=== PATIENT | male | born 1975 | race Caucasian/White ===

== ENCOUNTER → 2019-02-05 | Outpatient (CLI) | payer OTHER ==
[~2019-02-05] MED LIST: ALB6.7R INH
--- NOTE | 2019-02-05 10:20 | RADIOLOGY IMAGING REPORT ---
FACILITY: [facility] [place] PATIENT NAME: Mitchel Andrade : 1975 MR: [id number] V: [id number] EXAM DATE: ORDERING PHYSICIAN: SUSAN FLOWER TECHNOLOGIST: Location: [facility] Patient: Mitchel Andrade : 1975 Visit/Account:[id number] Date of Sevice: 02/05/2019 Chest with lateral, 2 views. HISTORY: Cough, positive TB. COMPARISON: None. One or two tiny densities consistent with calcified granulomas are present in the left upper lung. Th e heart and mediastinum are unremarkable. No bulky adenopathy. Pulmonary vessels are unremarkable. The lungs are otherwise clear. The pleural surfaces are unremarkable. No pneumothorax. No lung cavit ies. No acute bony abnormalities. IMPRESSION: Probable old granulomatous disease. Otherwise no evidence of acute cardiopulmonary disease. Report Dictated By: Bill Gerber MD at 02/05/2019 9:45 AM Report E-Signed By: Bill Gerber MD at 02/05/2019 10:15 AM WSN:[id number]
== END ==
LOC: RAD 09:17
PROVIDERS: ATTEND Family Medicine
DX: R05 Cough (principal); R76.11 Nonspecific reaction to tuberculin skin test without active tuberculosis
CPT/HCPCS: 71046

== ENCOUNTER 2019-02-06 09:40 | Inpatient (IN) | payer OTHER ==
[~2019-02-06] VITALS: Ht 180.3 cm; Wt 81.6 kg
[2019-02-06] MEDS ORDERED: NS(*) 0.9% 1000 ML BAG 1,000 ML IV ONE ×2 (09:47→14:00)
[2019-02-06] MEDS ORDERED: ONDANSETRON 4 MG/2 ML VIAL IVP ONE (09:50)
--- NOTE | 2019-02-06 10:04 | ER Report ---
History and Physical Time Seen By MD: 09:55 Hx. of Stated Complaint: PATIENT SENT BY HIS PCP FOR EVALUATION AFTER FINDING ELEVATED LFT'S IN BLOOD WORK. HE HAS BEEN HAVING SUBJECTIVE FEVERS AND FATIGUE FOR 5 DAYS HPI/ROS CHIEF COMPLAINT: Jaundice fever HISTORY OF PRESENT ILLNESS: 43-year-old male comes emergency department today with 3-4 days of fever general malaise seen by an outpatient physician as well as urgent care had a negative mono negative influenza negative strep done noticing halitosis and some right-sided lymphadenopathy of the right posterior chain patient states that it was sore and tender to palpation was placed on Augmentin for couple days had a little bit of a rashes taken off of that and switched to Cipro. Patient said he had no dysphonia bilirubin trismus patient denied chest pain but said he had some mild abdominal pain nonspecific nonlocalized he also described decreased appetite and nausea without actual emesis. Patient also noticed today he had icteric sclerae jaundice. Patient has no real significant past medical history otherwise patient denies any additional complaints at this time. REVIEW OF SYSTEMS: Respiratory: No cough, no dyspnea. Cardiovascular: No chest pain, no palpitations. Gastrointestinal: Mild abdominal pain jaundice Musculoskeletal: No back pain. Remainder of the 14 system rev: Yes Allergies: Coded Allergies: Penicillins (Verified Allergy, Unknown, 02/06/19) Reviewed Nurses Notes: Yes Old Medical Records Reviewed: Yes Hx Substance Use Disorder: No Hx Alcohol Use: Yes (OCC.) Constitutional Vital Sign - Last 24 Hours 02/06/19 02/06/19 02/06/19 02/06/19 09:45 09:48 10:00 10:10 Temp 100.8 Pulse 123 107 Resp 24 B/P (MAP) 132/101 132/101 (111) 134/86 (102) Pulse Ox 94 98 O2 Delivery Room Air 02/06/19 02/06/19 02/06/19 02/06/19 10:15 11:10 11:15 11:30 Pulse 111 103 B/P (MAP) 135/91 (106) 119/79 (92) Pulse Ox 93 93 02/06/19 02/06/19 02/06/19 02/06/19 11:45 12:00 12:05 12:30 Pulse 110 109 B/P (MAP) 118/89 (99) 120/76 (91) Pulse Ox 92 95 02/06/19 02/06/19 02/06/19 02/06/19 12:35 13:52 14:00 14:05 Pulse 111 110 B/P (MAP) 120/89 (99) 115/81 (92) Pulse Ox 97 93 02/06/19 02/06/19 02/06/19 02/06/19 14:30 14:35 15:00 15:05 Pulse 112 112 B/P (MAP) 119/78 (92) 114/78 (90) Pulse Ox 94 91 Physical Exam General Appearance: The patient is alert, has no immediate need for airway protection and no current signs of toxicity. [ ] Eyes: Anicteric sclera otherwise unremarkable Respiratory: Chest is non tender, lungs are clear to auscultation. Cardiac: regular rate and rhythm [ ] Gastrointestinal: Abdomen is mildly distended is had a palpable liver margin approximately 2 cm below the costal border. Otherwise unremarkable exam Musculoskeletal: Neck: Neck is supple and non tender. Extremities have full range of motion and are non tender. Skin: Icteric sclera with mild new jaundice [ ] DIFFERENTIAL DIAGNOSIS: After history and physical exam differential diagnosis w as considered for hepatitis liver function this functioning biliary tree abnormality obstructed stone mono influenza pharyngitis strep pharyngitis Medical Decision Making Data Points Result Diagram: 02/06/19 0950 02/06/19 0950 Laboratory Hematology Test 02/06/19 09:45 02/06/19 09:50 Urine Color Mary Urine Clarity Cloudy Urine pH 5.0 pH (4.8-9.5) Urine Specific [place] 1.017 Urine Protein 100 mg/dL (NEGATIVE) Urine Glucose (UA) Negative mg/dL (NEGATIVE) Urine Ketones 20 mg/dL (NEGATIVE) Urine Blood Moderate (NEGATIVE) Urine Nitrite Negative (NEGATIVE) Urine Bilirubin Moderate (NEGATIVE) Urine Urobilinogen 0.2 mg/dL (0.2-1.9) Urine Leukocyte Esterase Negative (NEGATIVE) Urine RBC 4 /HPF (0-2/HPF) Urine WBC 7 /HPF (0-5/HPF) Urine Squamous Epithelial Cells Few /LPF (</=FEW) Urine Calcium Oxalate Crystals Few /HPF (NONE) Urine Amorphous Crystals Few /HPF Urine Bacteria Negative /HPF (NONE-FEW) Urine Mucus Few /HPF (NONE-FEW) Red Blood Count 5.30 M/uL (4.00-5.60) Mean Corpuscular Volume 88.0 fL (80.0-96.0) Mean Corpuscular Hemoglobin 31.0 pg (26.0-33.0) Mean Corpuscular Hemoglobin Concent 35.2 g/dL (32.0-36.0) Red Cell Distribution Width 12.9 % (11.5-14.5) Mean Platelet Volume 8.6 fL (7.2-11.1) Neutrophils (%) (Auto) 88.8 % (39.4-72.5) Lymphocytes (%) (Auto) 3.5 % (17.6-49.6) Monocytes (%) (Auto) 6.1 % (4.1-12.4) Eosinophils (%) (Auto) 0.9 % (0.4-6.7) Basophils (%) (Auto) 0.7 % (0.3-1.4) Nucleated RBC Relative Count (auto) 0.1 /100WBC Neutrophils # (Auto) 9.0 K/uL (2.0-7.4) Lymphocytes # (Auto) 0.4 K/uL (1.3-3.6) Monocytes # (Auto) 0.6 K/uL (0.3-1.0) Eosinophils # (Auto) 0.1 K/uL (0.0-0.5) Basophils # (Auto) 0.1 K/uL (0.0-0.1) Nucleated RBC Absolute Count (auto) 0.01 K/uL Prothrombin Time 15.8 seconds (12.0-14.4) Prothromb Time International Ratio 1.25 Activated Partial Thromboplast Time 33 seconds (23-35) Sodium Level 135 mmol/L (137-145) Potassium Level 3.0 mmol/L (3.5-5.0) Chloride Level 96 mmol/L (98-107) Carbon Dioxide Level 28 mmol/L (22-30) Blood Urea Nitrogen 8 mg/dl (9-21) Creatinine 1.00 mg/dl (0.66-1.25) Glomerular Filtration Rate Calc > 60.0 Random Glucose 140 mg/dl (75-110) Calcium Level 8.8 mg/dl (8.4-10.2) Total Bilirubin 9.1 mg/dl (0.2-1.3) Aspartate Amino Transf (AST/SGOT) 60 U/L (0-35) Alanine Aminotransferase (ALT/SGPT) 170 U/L (0-56) Alkaline Phosphatase 209 U/L (0-126) Total Protein 7.5 g/dl (6.3-8.2) Albumin 3.9 g/dl (3.5-5.0) Lipase 504 U/L (23-300) Serum Alcohol < 10 mg/dl Hepatitis C Antibody Negative (NEGATIVE) Monoscreen Negative (NEGATIVE) Influenza Virus Type A (PCR) Negative (NEGATIVE) Influenza Virus Type B (PCR) Negative (NEGATIVE) Group A Streptococcus (PCR) Negative (NEGATIVE) Chemistry Test 02/06/19 09:45 02/06/19 09:50 Urine Color Mary Urine Clarity Cloudy Urine pH 5.0 pH (4.8-9.5) Urine Specific [place] 1.017 Urine Protein 100 mg/dL (NEGATIVE) Urine Glucose (UA) Negative mg/dL (NEGATIVE) Urine Ketones 20 mg/dL (NEGATIVE) Urine Blood Moderate (NEGATIVE) Urine Nitrite Negative (NEGATIVE) Urine Bilirubin Moderate (NEGATIVE) Urine Urobilinogen 0.2 mg/dL (0.2-1.9) Urine Leukocyte Esterase Negative (NEGATIVE) Urine RBC 4 /HPF (0-2/HPF) Urine WBC 7 /HPF (0-5/HPF) Urine Squamous Epithelial Cells Few /LPF (</=FEW) Urine Calcium Oxalate Crystals Few /HPF (NONE) Urine Amorphous Crystals Few /HPF Urine Bacteria Negative /HPF (NONE-FEW) Urine Mucus Few /HPF (NONE-FEW) White Blood Count 10.2 k/uL (4.5-11.0) Red Blood Count 5.30 M/uL (4.00-5.60) Hemoglobin 16.4 g/dL (14.0-18.0) Hematocrit 46.6 % (42.0-52.0) Mean Corpuscular Volume 88.0 fL (80.0-96.0) Mean Corpuscular Hemoglobin 31.0 pg (26.0-33.0) Mean Corpuscular Hemoglobin Concent 35.2 g/dL (32.0-36.0) Red Cell Distribution Width 12.9 % (11.5-14.5) Platelet Count 193 K/uL (150-450) Mean Platelet Volume 8.6 fL (7.2-11.1) Neutrophils (%) (Auto) 88.8 % (39.4-72.5) Lymphocytes (%) (Auto) 3.5 % (17.6-49.6) Monocytes (%) (Auto) 6.1 % (4.1-12.4) Eosinophils (%) (Auto) 0.9 % (0.4-6.7) Basophils (%) (Auto) 0.7 % (0.3-1.4) Nucleated RBC Relative Count (auto) 0.1 /100WBC Neutrophils # (Auto) 9.0 K/uL (2.0-7.4) Lymphocytes # (Auto) 0.4 K/uL (1.3-3.6) Monocytes # (Auto) 0.6 K/uL (0.3-1.0) Eosinophils # (Auto) 0.1 K/uL (0.0-0.5) Basophils # (Auto) 0.1 K/uL (0.0-0.1) Nucleated RBC Absolute Count (auto) 0.01 K/uL Prothrombin Time 15.8 seconds (12.0-14.4) Prothromb Time International Ratio 1.25 Activated Partial Thromboplast Time 33 seconds (23-35) Glomerular Filtration Rate Calc > 60.0 Calcium Level 8.8 mg/dl (8.4-10.2) Total Bilirubin 9.1 mg/dl (0.2-1.3) Aspartate Amino Transf (AST/SGOT) 60 U/L (0-35) Alanine Aminotransferase (ALT/SGPT) 170 U/L (0-56) Alkaline Phosphatase 209 U/L (0-126) Total Protein 7.5 g/dl (6.3-8.2) Albumin 3.9 g/dl (3.5-5.0) Lipase 504 U/L (23-300) Serum Alcohol < 10 mg/dl Hepatitis C Antibody Negative (NEGATIVE) Monoscreen Negative (NEGATIVE) Influenza Virus Type A (PCR) Negative (NEGATIVE) Influenza Virus Type B (PCR) Negative (NEGATIVE) Group A Streptococcus (PCR) Negative (NEGATIVE) Coagulation Test 02/06/19 09:50 Prothrombin Time 15.8 seconds Prothromb Time International Ratio 1.25 Activated Partial Thromboplast Time 33 seconds Toxicology Test 02/06/19 09:50 Serum Alcohol < 10 mg/dl Urinalysis Test 02/06/19 09:45 Urine Color Mary Urine Clarity Cloudy Urine pH 5.0 pH (4.8-9.5) Urine Specific [place] 1.017 Urine Protein 100 mg/dL (NEGATIVE) Urine Glucose (UA) Negative mg/dL (NEGATIVE) Urine Ketones 20 mg/dL (NEGATIVE) Urine Blood Moderate (NEGATIVE) Urine Nitrite Negative (NEGATIVE) Urine Bilirubin Moderate (NEGATIVE) Urine Urobilinogen 0.2 mg/dL (0.2-1.9) Urine Leukocyte Esterase Negative (NEGATIVE) Urine RBC 4 /HPF (0-2/HPF) Urine WBC 7 /HPF (0-5/HPF) Urine Squamous Epithelial Cells Few /LPF (</=FEW) Urine Calcium Oxalate Crystals Few /HPF (NONE) Urine Amorphous Crystals Few /HPF Urine Bacteria Negative /HPF (NONE-FEW) Urine Mucus Few /HPF (NONE-FEW) ED Course/Re-evaluation ED Course ED course medical decision making 43-year-old male comes in with obvious jaundice we'll with a bili Juan of 9.1 CT scan did show some thickening of the gallbladder wall follow-up ERCP showed no obstruction of the duct surgery up at site consults comfortable with admission here hepatitis panels and additional blood work sent but due to the fact this may be some intrarenal and friction intrahepatic issues he wants to have a hospice psych consult this was notified to the ED patient be admitted diagnosis cholangitis Decision to Disposition Date: February 06, 2019 Decision to Disposition Time: 15:35 Depart Departure Latest Vital Signs Vital Signs Date Time Temp Pulse Resp B/P (MAP) Pulse Ox O2 Delivery O2 Flow Rate FiO2 02/06/19 15:05 112 91 02/06/19 15:00 114/78 (90) 02/06/19 09:45 100.8 24 Room Air Impression: Primary Impression: Cholangitis Condition: Improved Disposition: Admitted from ER Referrals: SUSAN FLOWER DO (PCP) MULUGETA ZAVALA MD February 06, 2019 10:04
[2019-02-06 10:07] LABS: PLATELET COUNT, AUTOMATED 193 K/uL (150-450)
[2019-02-06 10:09] LABS: INR 1.25
[2019-02-06] MEDS ORDERED: IOPAMIDOL 76% 100 ML INFUS BTL 100 ML ONE (10:14)
--- NOTE | 2019-02-06 11:19 | RADIOLOGY IMAGING REPORT ---
FACILITY: [facility] [place] PATIENT NAME: Mitchel Andrade : 1975 MR: [id number] V: [id number] EXAM DATE: ORDERING PHYSICIAN: MULUGETA ZAVALA TECHNOLOGIST: Location: [facility] [place] Patient: Mitchel Andrade : 1975 Visit/Account:[id number] Date of Sevice: 02/06/2019 EXAMINATION: CT neck with IV contrast HISTORY: Neck swelling, difficulty swallowing TECHNIQUE: CT was obtained through the neck following IV contrast administration. Sagittal and co kendy reformatted images were generated. 75 mL of IV Isovue-370 injected. One of the following dose optimization techniques was utilized in the performance of this exam: autom ated exposure control; adjustment of the mA and/or kV according to patient size; or use of iterative reconstruction technique. Specific details can be referenced in the facility's radiology CT exam ope rational policy. COMPARISON: None. FINDINGS: Parotid/submandibular and thyroid glands: Subcentimeter left posterior thyroid nodule, image 58 axial Pharyngeal and retropharyngeal soft tissues: Chronic calcifications within the bilateral tonsillar pi llars, otherwise unremarkable. Oral cavity and insolvency consultant space soft tissues: Normal. Larynx/glottis and airway: Normal. Lymph nodes: Mildly enlarged right level two lymph node measures 2.3 cm craniocaudad. Multiple bilat eral nonenlarged normal appearing jugular chain lymph nodes. Vessels: No significant finding. Visualized orbits / brain: No significant finding. Upper chest: Normal. Bones/sinuses/mastoid air cells: Normal. IMPRESSION: 1. Mildly enlarged right level two, likely reactive/benign, lymph node. 2. Subcentimeter left thyroid nodule is statistically benign. 3. Otherwise unremarkable neck CT. No abscess identified. Report Dictated By: Jordan Rivas MD at 02/06/2019 11:08 AM Report E-Signed By: Jordan Rivas MD at 02/06/2019 11:14 AM WSN:[id number]
--- NOTE | 2019-02-06 11:45 | RADIOLOGY IMAGING REPORT ---
FACILITY: [facility] PATIENT NAME: Mitchel Andrade : 1975 MR: [id number] V: [id number] EXAM DATE: ORDERING PHYSICIAN: MULUGETA ZAVALA TECHNOLOGIST: Location: [facility] [place] Patient: Mitchel Andrade : 1975 Visit/Account:[id number] Date of Sevice: 02/06/2019 CT ABDOMEN PELVIS W/ CON HISTORY: ab pain jaundice TECHNIQUE: Following administration of IV contrast contiguous axial images acquired through the abdom en/pelvis. Coronal and sagittal reformatting also performed.Dose Lowering Technique One of the following dose optimization techniques was utilized in the performance of this exam: Autom ated exposure control; adjustment of the mA and/or kV according to the patient's size; or use of an i terative reconstruction technique. Specific details can be referenced in the facility's radiology C T exam operational policy. CONTRAST: 75 mL Isovue-370 COMPARISON: None. FINDINGS: Visualized lung bases: There is a 3 mm noncalcified nodule posterior lateral aspect right lower lobe best seen on image 56 of series 3. There is a small amount linear stranding in the lower lobes whic h may represent scarring versus atelectasis. Hepatobiliary: There is a small amount of pericholecystic fluid and enhancement of the gallbladder w all. There is no evidence of biliary ductal dilatation. Spleen: Spleen appears borderline enlarged Adrenals: Negative. Pancreas: Negative. Kidneys ureters or bladder: There is a mild right hydronephrosis and mild dilatation of the right ure ter along its proximal two thirds. Within the pelvis the distal right ureter becomes a very dilated to the level of the right UVJ. Obstructing calculus is not seen . The bladder wall is mildly thickened Genitalia: There are prominent vascular structures along the superior aspect of both scrotal sacs po ssibly reflecting varicoceles GI: There is a focal narrowing at the splenic flexure which could simply be related to spasm . Just inferior to the pylorus is a slightly lobular enhancing space-occupying process measuring 1.4 x 1.5 x 2.1 cm which is best appreciated on axial slice 180 of series 3 coronal slice 28 and sagittal s lice 59. This is of uncertain etiology although it does appear to enhance to the same density as the adjacent pancreas. This could represent ectopic pancreatic tissue. Less likely etiology would be a submucosal mass. A three month follow-up CT is recommended. Vessels/spaces/nodes: Negative. Bones/soft tissues: There is a small umbilical hernia containing fat and a small right inguinal jasen ia containing fat Additional findings: None pertinent. IMPRESSION: There is a small amount of pericholecystic fluid and enhancement of the gallbladder wall. This could be related to acute cholecystitis and correlation with gallbladder ultrasound is recommended Borderline splenomegaly There is mild right hydronephrosis and mild dilatation of the right ureter along its proximal two thi rds. Within the pelvis the distal right ureter becomes very dilated to the level of the right UVJ. Obstructing calculus is not seen. Urology consultation recommended Bladder wall is mildly thickened Possible varicoceles Just inferior to the pylorus is a slightly lobular enhancing space-occupying process as described abo ve. This could represent ectopic pancreatic tissue. Less likely etiology would be a submucosal mass . A three month follow-up CT is recommended to assure stability Small umbilical hernia containing fat and small right inguinal hernia containing fat 3 mm noncalcified nodule right lower lobe [employer] FOLLOW-UP GUIDELINES FOR NEWLY DETECTED INCIDENTAL NODULES IN PERSONS 35 YEARS OF AGE OR OLDER. *These recommendations do NOT apply to lung cancer screening, patients with immunosuppression or angelica ents with a known primary malignancy. SOLITARY SOLID NODULE If nodule size is < 6 mm: * Low risk patient ? No routine follow-up. * High ris patient ? Optional CT at 12 months. If nodule size is 6-8 mm: * Low risk patient ? CT at 6-12 months, then consider CT at 18-24 months if no change.* High risk p atient ? CT at 6-12 months, then CT at 18-24 months if no change. If nodule size is > 8 mm: * Low risk patient ? Consider CT at 3, 9 and 24 months (if no change), PET/CT, tissue sampling or a combination thereof. * High risk patient ? Consider CT at 3, 9 and 24 months (if no change), PET/CT, tissue sampling, or a combination thereof. LOW RISK PATIENT: Minimal or absent history of tobacco use and of other known risk factors. HIGH RISK PATIENT: Tobacco use, family history of lung cancer, upper pulmonary lobe location of nodul e, presence of emphysema, pulmonary fibrosis, older age. Sofiya Guaman Charlotte DP, Moni AGUIAR, et al. Guidelines for Management of Incidental Pulmonary Nodules Dete cted on CT Images: From the Fleischner Society 2017. Radiology. [facility] Small amount scarring versus atelectasis in the lower lobes Report Dictated By: Roxy Vann MD at 02/06/2019 10:52 AM Report E-Signed By: Roxy Vann MD at 02/06/2019 11:41 AM WSN:[id number]
--- NOTE | 2019-02-06 11:51 | RADIOLOGY IMAGING REPORT ---
FACILITY: [facility] PATIENT NAME: Mitchel Andrade : 1975 MR: [id number] V: [id number] EXAM DATE: ORDERING PHYSICIAN: MULUGETA ZAVALA TECHNOLOGIST: Location: [facility] Patient: Mitchel Andrade : 1975 Visit/Account:[id number] Date of Sevice: 02/06/2019 GALLBLADDER HISTORY: Elevated liver enzymes, enlarged lymph nodes COMPARISON: CT on pelvis performed today FINDINGS: Gallbladder: Gallbladder wall appears thickened at 3.1 mm. There is a small amount of pericholecysti c fluid present. There is no demonstration of gallbladder stones or sludge. The patient was not akshat luated for potential Orozco sign. Liver: There is mild increased echogenicity throughout liver which can be seen with fatty infiltratio n or other infiltrative process Common duct: upper limits of normal at 5.3 mm diameter. Pancreas: Partially obscured by bowel, visualized aspects unremarkable. Right kidney: Mild right hydronephrosis Upper abdominal aorta and IVC: Patent. Ascites: None visualized. IMPRESSION: Gallbladder wall is thickened with a small amount of pericholecystic fluid which is concerning for ac nome cholecystitis. Common bile duct is upper limits of normal at 5.3 mm Mild increased echogenicity throughout liver which can be seen with fatty infiltration other infiltra tive process Mild right hydronephrosis Report Dictated By: Roxy Vann MD at 02/06/2019 11:42 AM Report E-Signed By: Roxy Vann MD at 02/06/2019 11:45 AM WSN:[id number]
--- NOTE | 2019-02-06 12:02 | RADIOLOGY IMAGING REPORT ---
FACILITY: [facility] - [place] PATIENT NAME: Mitchel Andrade : 1975 MR: [id number] V: [id number] EXAM DATE: [id number] ORDERING PHYSICIAN: MULUGETA ZAVALA TECHNOLOGIST: Location: [facility] Patient: Mitchel Andrade : 1975 Visit/Account:[id number] Date of Sevice: 02/06/2019 Exam type: CHEST PA LAT History: Dizziness, pain when swallowing saliva, diminished appetite Comparison: February 05, 2019. Findings: The lungs are free of acute effusions, infiltrates or edema. The cardiac silhouette is normal in siz e. The trachea is in midline. IMPRESSION: 1. No acute cardiopulmonary process is seen Report Dictated By: Roxy Vann MD at 02/06/2019 11:56 AM Report E-Signed By: Roxy Vann MD at 02/06/2019 11:57 AM WSN:[id number]
[2019-02-06] MEDS ORDERED: GADOBENATE 529MG/1ML 15ML VIAL IVP ONE (12:57)
[2019-02-06] MEDS ORDERED: NS(*) 0.9% 50 ML BAG 50 ML ONE (12:57)
--- NOTE | 2019-02-06 14:38 | RADIOLOGY IMAGING REPORT ---
FACILITY: [facility] - [place] PATIENT NAME: Mitchel Andrade : 1975 MR: [id number] V: [id number] EXAM DATE: ORDERING PHYSICIAN: MULUGETA ZAVALA TECHNOLOGIST: Location: [facility] [place] Patient: Mitchel Andrade : 1975 Visit/Account:[id number] Date of Sevice: 02/06/2019 EXAMINATION: Abdominal MRI/MRCP without and with IV contrast HISTORY: Abdominal pain. Elevated liver enzymes. Technique: Multiplanar, multisequence MR images of the abdomen were obtained without and with IV cont rast, including MRCP sequences. Contrast: 15 mL of IV Multihance. COMPARISON: CT abdomen/pelvis 02/06/2019. Abdominal ultrasound 02/06/2019. FINDINGS: Liver: Normal hepatic size and morphology with normal signal intensity and enhancement of the liver parenchyma. No evidence of any focal liver lesion. Gallbladder and bile ducts: The gallbladder is mildly distended, measuring 2.5 cm in diameter. There is mild diffuse wall thickening and enhancement of the gallbladder wall with mild pericholecystic ed aneesh. No discrete intraluminal gallstones are visualized on MRCP sequences. The bile ducts are normal in caliber without dilatation or evidence of any abnormal filling defect. The common bile duct measur es 3 mm. Spleen: Negative. Pancreas: Normal size and morphology of the pancreas with normal signal intensity and enhancement. N o evidence of a focal pancreatic mass. No pancreatic ductal dilatation. Adrenal glands: Negative. Kidneys: Mild hydronephrosis of the right kidney, similar to the earlier CT. The left kidney is nega tive for hydronephrosis. The kidneys enhance normally with normal size and morphology. Bowel and peritoneum: Visualized segments of the small bowel and colon are normal in caliber. No bow el obstruction. Again noted is a small lobular soft tissue mass abutting the inferior wall of the dis bertrand gastric antrum and pylorus. The mass is better defined on the earlier CT, measuring approximately 2.1 x 1.5 x 1.4 cm. This mass demonstrates similar signal intensity and enhancement as the pancreas on all sequences, and appearance again may be compatible with a small amount of ectopic pancreatic ti ssue. Other etiologies not excluded including possible GIST. No abdominal ascites. Lymph node assessment: Negative. Vessels: The abdominal aorta and IVC are patent and normal in caliber. The hepatic veins, portal vei ns, and portal tributaries are patent. Musculoskeletal: Negative. Body wall: Negative. Lung bases: Negative. IMPRESSION: 1. There is mild wall thickening and enhancement of the gallbladder, without any discrete gallstones visualized. While this could be due to cholecystitis, the appearance is nonspecific and other etiolog ies could include systemic illness or cardiac or liver disease. 2. Unremarkable bile ducts. No dilatation or evidence of any discrete intraductal filling defect. 3. Normal MR appearance of the liver. 4. Again noted is a 2.1 cm soft tissue mass abutting the distal gastric antrum and pylorus. 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 Other soft tissue masses are not excluded in cluding possible GIST. If clinically indicated this could be further evaluated with EUS with possible sampling. Alternatively, 3-6 month follow-up could be performed to document stability. CT would like ly be the best modality for imaging follow-up. 5. Stable mild right hydronephrosis, of uncertain etiology. Report Dictated By: Ricardo Miguel MD at 02/06/2019 2:08 PM Report E-Signed By: Ricardo Miguel MD at 02/06/2019 2:33 PM WSN:[id number]
[2019-02-06] MEDS ORDERED: IBUPROFEN 200 MG TAB PO ONE (15:40)
[2019-02-06 16:20] VITALS: BP 125/86
[2019-02-06] MEDS ORDERED: ALB6.7R INH (16:46)
--- NOTE | 2019-02-06 17:44 | Hospitalist Consultation ---
History of Present Illness Requesting Physician Dr. Adam Reason for Consult Possible hepatitis Chief Complaint Jaundice, fever History of Present Illness 43yo male with very little PMHx. He reports onset of nausea, poor appetite, loose stools, fever, jaundice, and abdominal bloating over the past week. He states he has not experienced much in the way of abdominal pain. He did notice some enlarged lymph nodes in his submandibular area. He also noted sore throat and "heartburn". He was seen in urgent care and his PCP's office during the past 4-5 days. He was placed on a course of Augmentin, but was then switched to Cipro. He also had a short pulse of prednisone. He did also take ibuprofen and acetaminophen at near maximal doses for a couple of days. He is not currently taking any medications. He does take occasional "tinctures" from the Optifreeze and did use CBD oil for "stress" a few months ago. He does not recall any exposure to concerning food or fluids. He and his generally eat the same things and she has not been ill. They do not eat out much. He has not travelled out of the [facility] in past few months, but did go to [place] and [place] about 9 months ago. Apparently, since returning from this travel he had significant bad breath, but no other complaints. He has not had any blood transfusions. He is in a monogamous relationship. He does drink alcohol occasionally, but denies daily drinking or binging. His evaluation thus far has included CT scan on abdomen/pelvis, GB ultrasound, MRCP. He also had viral hepatitis studies drawn. History Problems: (1) Fracture of right radius Status: Resolved (2) History of left knee surgery Status: Resolved Home Meds Reported Medications Albuterol Sulfate (PROVENTIL HFA) 6.7 Gm Inh, 2 PUFF INH Q4-6H PRN for WHEEZING, INH 02/06/19 Allergies: Coded Allergies: Penicillins (Verified Allergy, Unknown, 02/06/19) Patient History: Bursitis FATHER FH: Alzheimer's disease Paternal Grandmother FH: alcoholism FATHER Paternal Grandfather FH: back pain Maternal Grandmother FH: cancer Maternal Grandfather FH: heart disease FATHER FH: pneumonia Maternal Grandmother FHx: suicide Paternal Grandfather Fibromyalgia BROTHER OR SISTER High cholesterol FATHER Hx Smoking: No Caffeine Intake: Coffee, Tea Caffeine/Cups Per Day: 2-3/day Hx Alcohol Use: Yes Alcohol Used: Beer, Wine Hx Substance Use Disorder: Yes Social Drug Use: Currently Social Drugs: Marijuana Amount Of Social Drug/s Used: 3-4 times/year Review of Systems Constitutional: Fever, Chills Neurological: Weakness; No Syncope Eyes: No Vision Change, No Loss of Vision Cardiovascular: No Chest Pain, No Palpitations Respiratory: No Shortness of Breath, No Cough Gastrointestinal: Nausea, Vomiting, Diarrhea; No Dysphagia, No Hematemesis, No Hematochezia, No Melena Genitourinary: No Dysuria, No Hematuria Exam Vital Signs Vital Signs Date Time Temp Pulse Resp B/P (MAP) Pulse Ox O2 Delivery O2 Flow Rate FiO2 02/06/19 17:41 92 Room Air 02/06/19 16:30 101.0 02/06/19 16:20 115 16 125/86 (99) General Appearance: Alert, Awake, Other (mild jaundice) Neuro: No Gross deficits Eyes: PERRLA, Other (sclera are mildly icteric) ENT: Oropharynx Clear Neck: No Masses Cardiovascular: Regular Rate and Rhythm (no murmurs noted), No Edema, No JVD Respiratory: Clear to Auscultation Chest: No Tenderness GI: Other (soft/liver edge palpable a few centimeters below right costal nitza in/somewhat tender over RUQ/no guarding or rebound/BS present) : No CVA Tenderness Extremities: Warm, Perfused Integumentary: Skin Intact without Lesion / Mass Psych: Alert & Oriented X3 Medical Decision Making Data Points Result Diagram: 02/06/19 0950 02/06/19 0950 Item Value Date Time Lipase 504 U/L H 02/06/19 0950 Albumin 3.9 g/dl 02/06/19 0950 Total Protein 7.5 g/dl 02/06/19 0950 Alkaline Phosphatase 209 U/L H 02/06/19 0950 Alanine Aminotransferase (ALT/SGPT) 170 U/L H 02/06/19 0950 Aspartate Amino Transf (AST/SGOT) 60 U/L H 02/06/19 0950 Total Bilirubin 9.1 mg/dl H 02/06/19 0950 Calcium Level 8.8 mg/dl 02/06/19 0950 Urine Mucus Few /HPF 02/06/19 0945 Urine Bacteria Negative /HPF 02/06/19 0945 Urine Amorphous Crystals Few /HPF 02/06/19 0945 Urine Calcium Oxalate Crystals Few /HPF H 02/06/19 0945 Urine Squamous Epithelial Cells Few /LPF 02/06/1945 Urine WBC 7 /HPF 02/06/1945 Urine RBC 4 /HPF 02/06/19 0945 Urine Leukocyte Esterase Negative 02/06/1945 Urine Bilirubin Moderate 02/06/1945 Urine Urobilinogen 0.2 mg/dL 02/06/1945 Urine Nitrite Negative 02/06/19 0945 Urine Blood Moderate 02/06/1945 Urine Ketones 20 mg/dL H 02/06/19 0945 Urine Glucose (UA) Negative mg/dL 02/06/1945 Urine Protein 100 mg/dL 02/06/1945 Urine Specific [place] 1.017 02/06/19 0945 Urine pH 5.0 pH 02/06/19 0945 Urine Clarity Cloudy 02/06/19 0945 Urine Color Mary 02/06/19 0945 Hepatitis C Antibody Negative 02/06/19 0950 Group A Streptococcus (PCR) Negative 02/06/19 0950 Influenza Virus Type B (PCR) Negative 02/06/19 0950 Influenza Virus Type A (PCR) Negative 02/06/19 0950 Monoscreen Negative 02/06/19 0950 Serum Alcohol < 10 mg/dl 02/06/19 0950 Activated Partial Thromboplast Time 33 seconds 02/06/19 0950 Prothromb Time International Ratio 1.25 02/06/19 0950 Prothrombin Time 15.8 seconds H 02/06/19 0950 EKG / Imaging Imaging PATIENT NAME: Mitchel Andrade : 1975 MR: [id number] V: [id number] EXAM DATE: ORDERING PHYSICIAN: MULUGETA ZAVALA TECHNOLOGIST: Location: [facility] Patient: Mitchel Andrade : 1975 Visit/Account:[id number] Date of Sevice: 02/06/2019 EXAMINATION: Abdominal MRI/MRCP without and with IV contrast HISTORY: Abdominal pain. Elevated liver enzymes. Technique: Multiplanar, multisequence MR images of the abdomen were obtained without and with IV contrast, including MRCP sequences. Contrast: 15 mL of IV Multihance. COMPARISON: CT abdomen/pelvis 02/06/2019. Abdominal ultrasound 02/06/2019. FINDINGS: Liver: Normal hepatic size and morphology with normal signal intensity and enhancement of the liver parenchyma. No evidence of any focal liver lesion. Gallbladder and bile ducts: The gallbladder is mildly distended, measuring 2.5 cm in diameter. There is mild diffuse wall thickening and enhancement of the gallbladder wall with mild pericholecystic edema. No discrete intraluminal gallstones are visualized on MRCP sequences. The bile ducts are normal in caliber without dilatation or evidence of any abnormal filling defect. The common bile duct measures 3 mm. Spleen: Negative. Pancreas: Normal size and morphology of the pancreas with normal signal inte nsity and enhancement. No evidence of a focal pancreatic mass. No pancreatic ductal dilatation. Adrenal glands: Negative. Kidneys: Mild hydronephrosis of the right kidney, similar to the earlier CT. The left kidney is negative for hydronephrosis. The kidneys enhance normally with normal size and morphology. Bowel and peritoneum: Visualized segments of the small bowel and colon are normal in caliber. No bowel obstruction. Again noted is a small lobular soft tissue mass abutting the inferior wall of the distal gastric antrum and pylorus. The mass is better defined on the earlier CT, measuring approximately 2.1 x 1.5 x 1.4 cm. This mass demonstrates similar signal intensity and enhancement as the pancreas on all sequences, and appearance again may be compatible with a small amount of ectopic pancreatic tissue. Other etiologies not excluded including possible GIST. No abdominal ascites. Lymph node assessment: Negative. Vessels: The abdominal aorta and IVC are patent and normal in caliber. The hepatic veins, portal veins, and portal tributaries are patent. Musculoskeletal: Negative. Body wall: Negative. Lung bases: Negative. IMPRESSION: 1. There is mild wall thickening and enhancement of the gallbladder, without any discrete gallstones visualized. While this could be due to cholecystitis, the appearance is nonspecific and other etiologies could include systemic illness or cardiac or liver disease. 2. Unremarkable bile ducts. No dilatation or evidence of any discrete intraductal filling defect. 3. Normal MR appearance of the liver. 4. Again noted is a 2.1 cm soft tissue mass abutting the distal gastric antrum and pylorus. This demonstrates similar signal intensity and enhancement to the pancreas on all sequences, and again this may represent a small amount of ectopic pancreatic tissue. Other soft tissue masses are not excluded including possible GIST. If clinically indicated this could be further evaluated with EUS with possible sampling. Alternatively, 3-6 month follow-up could be performed to document stability. CT would likely be the best modality for imaging follow-up. 5. Stable mild right hydronephrosis, of uncertain etiology. Report Dictated By: Ricardo Miguel MD at 02/06/2019 2:08 PM Report E-Signed By: Ricardo Miguel MD at 02/06/2019 2:33 PM WSN:[id number] PATIENT NAME: Mitchel Andrade : 1975 MR: [id number] V: [id number] EXAM DATE: [id number] ORDERING PHYSICIAN: MULUGETA ZAVALA TECHNOLOGIST: Location: [facility] Patient: Mitchel Andrade : 1975 Visit/Account:[id number] Date of Sevice: 02/06/2019 EXAMINATION: CT neck with IV contrast HISTORY: Neck swelling, difficulty swallowing TECHNIQUE: CT was obtained through the neck following IV contrast administration. Sagittal and coronal reformatted images were generated. 75 mL of IV Isovue-370 injected. One of the following dose optimization techniques was utilized in the performance of this exam: automated exposure control; adjustment of the mA and/or kV according to patient size; or use of iterative reconstruction technique. Specific details can be referenced in the facility's radiology CT exam operational policy. COMPARISON: None. FINDINGS: Parotid/submandibular and thyroid glands: Subcentimeter left posterior thyroid nodule, image 58 axial Pharyngeal and retropharyngeal soft tissues: Chronic calcifications within the bilateral tonsillar pillars, otherwise unremarkable. Oral cavity and foxpro developer space soft tissues: Normal. Larynx/glottis and airway: Normal. Lymph nodes: Mildly enlarged right level two lymph node measures 2.3 cm craniocaudad. Multiple bilateral nonenlarged normal appearing jugular chain lymph nodes. Vessels: No significant finding. Visualized orbits / brain: No significant finding. Upper chest: Normal. Bones/sinuses/mastoid air cells: Normal. IMPRESSION: 1. Mildly enlarged right level two, likely reactive/benign, lymph node. 2. Subcentimeter left thyroid nodule is statistically benign. 3. Otherwise unremarkable neck CT. No abscess identified. Report Dictated By: Jordan Rivas MD at 02/06/2019 11:08 AM Report E-Signed By: Jordan Rivas MD at 02/06/2019 11:14 AM WSN:[id number] PATIENT NAME: Mitchel Andrade : 1975 MR: [id number] V: [id number] EXAM DATE: ORDERING PHYSICIAN: MULUGETA ZAVALA TECHNOLOGIST: Location: [facility] Patient: Mitchel Andrade : 1975 Visit/Account:[id number] Date of Sevice: 02/06/2019 CT ABDOMEN PELVIS W/ CON HISTORY: ab pain jaundice TECHNIQUE: Following administration of IV contrast contiguous axial images acquired through the abdomen/pelvis. Coronal and sagittal reformatting also performed.Dose Lowering Technique One of the following dose optimization techniques was utilized in the performance of this exam: Automated exposure control; adjustment of the mA and/or kV according to the patient's size; or use of an iterative reconstruction technique. Specific details can be referenced in the facility's radiology CT exam operational policy. CONTRAST: 75 mL Isovue-370 COMPARISON: None. FINDINGS: Visualized lung bases: There is a 3 mm noncalcified nodule posterior lateral aspect right lower lobe best seen on image 56 of series 3. There is a small amount linear stranding in the lower lobes which may represent scarring versus atelectasis. Hepatobiliary: There is a small amount of pericholecystic fluid and enhancement of the gallbladder wall. There is no evidence of biliary ductal dilatation. Spleen: Spleen appears borderline enlarged Adrenals: Negative. Pancreas: Negative. Kidneys ureters or bladder: There is a mild right hydronephrosis and mild dilatation of the right ureter along its proximal two thirds. Within the pelvis the distal right ureter becomes a very dilated to the level of the right UVJ. Obstructing calculus is not seen . The bladder wall is mildly thickened Genitalia: There are prominent vascular structures along the superior aspect of both scrotal sacs possibly reflecting varicoceles GI: There is a focal narrowing at the splenic flexure which could simply be related to spasm . Just inferior to the pylorus is a slightly lobular enhancing space-occupying process measuring 1.4 x 1.5 x 2.1 cm which is best appreciated on axial slice 180 of series 3 coronal slice 28 and sagittal slice 59. This is of uncertain etiology although it does appear to enhance to the same density as the adjacent pancreas. This could represent ectopic pancreatic tissue. Less likely etiology would be a submucosal mass. A three month follow-up CT is recommended. Vessels/spaces/nodes: Negative. Bones/soft tissues: There is a small umbilical hernia containing fat and a small right inguinal hernia containing fat Additional findings: None pertinent. IMPRESSION: There is a small amount of pericholecystic fluid and enhancement of the gallbladder wall. This could be related to acute cholecystitis and correlation with gallbladder ultrasound is recommended Borderline splenomegaly There is mild right hydronephrosis and mild dilatation of the right ureter along its proximal two thirds. Within the pelvis the distal right ureter becomes very dilated to the level of the right UVJ. Obstructing calculus is not seen. Urology consultation recommended Bladder wall is mildly thickened Possible varicoceles Just inferior to the pylorus is a slightly lobular enhancing space-occupying process as described above. This could represent ectopic pancreatic tissue. Less likely etiology would be a submucosal mass. A three month follow-up CT is recommended to assure stability Small umbilical hernia containing fat and small right inguinal hernia containing fat 3 mm noncalcified nodule right lower lobe FLEISCHNER SOCIETY FOLLOW-UP GUIDELINES FOR NEWLY DETECTED INCIDENTAL NODULES IN PERSONS 35 YEARS OF AGE OR OLDER. *These recommendations do NOT apply to lung cancer screening, patients with immunosuppression or patients with a known primary malignancy. SOLITARY SOLID NODULE If nodule size is < 6 mm: * Low risk patient ? No routine follow-up. * High ris patient ? Optional CT at 12 months. If nodule size is 6-8 mm: * Low risk patient ? CT at 6-12 months, then consider CT at 18-24 months if no change.* High risk patient ? CT at 6-12 months, then CT at 18-24 months if no change. If nodule size is > 8 mm: * Low risk patient ? Consider CT at 3, 9 and 24 months (if no change), PET/CT, tissue sampling or a combination thereof. * High risk patient ? Consider CT at 3, 9 and 24 months (if no change), PET/CT, tissue sampling, or a combination thereof. LOW RISK PATIENT: Minimal or absent history of tobacco use and of other known risk factors. HIGH RISK PATIENT: Tobacco use, family history of lung cancer, upper pulmonary lobe location of nodule, presence of emphysema, pulmonary fibrosis, older age. Sofiya H, Charlotte DP, Moni JM, et al. Guidelines for Management of Incidental Pulmonary Nodules Detected on CT Images: From the Fleischner Society 2017. Radiology. [facility] Small amount scarring versus atelectasis in the lower lobes Report Dictated By: Roxy Vann MD at 02/06/2019 10:52 AM Report E-Signed By: Roxy Vann MD at 02/06/2019 11:41 AM WSN:[id number] PATIENT NAME: Mitchel Andrade : 1975 MR: [id number] V: [id number] EXAM DATE: [id number] ORDERING PHYSICIAN: MULUGETA ZAVALA TECHNOLOGIST: Location: [facility] Patient: Mitchel Andrade : 1975 Visit/Account:[id number] Date of Sevice: 02/06/2019 Exam type: CHEST PA LAT History: Dizziness, pain when swallowing saliva, diminished appetite Comparison: February 05, 2019. Findings: The lungs are free of acute effusions, infiltrates or edema. The cardiac silhouette is normal in size. The trachea is in midline. IMPRESSION: 1. No acute cardiopulmonary process is seen Report Dictated By: Roxy Vann MD at 02/06/2019 11:56 AM Report E-Signed By: Roxy Vann MD at 02/06/2019 11:57 AM WSN:[id number] PATIENT NAME: iMtchel Andrade : 1975 MR: [id number] V: [id number] EXAM DATE: [id number] ORDERING PHYSICIAN: MULUGETA ZAVALA TECHNOLOGIST: Location: [facility] Patient: Mitchel Andrade : 1975 Visit/Account:[id number] Date of Sevice: 02/06/2019 GALLBLADDER HISTORY: Elevated liver enzymes, enlarged lymph nodes COMPARISON: CT on pelvis performed today FINDINGS: Gallbladder: Gallbladder wall appears thickened at 3.1 mm. There is a small amount of pericholecystic fluid present. There is no demonstration of gallbladder stones or sludge. The patient was not evaluated for potential Orozco sign. Liver: There is mild increased echogenicity throughout liver which can be seen with fatty infiltration or other infiltrative process Common duct: upper limits of normal at 5.3 mm diameter. Pancreas: Partially obscured by bowel, visualized aspects unremarkable. Right kidney: Mild right hydronephrosis Upper abdominal aorta and IVC: Patent. Ascites: None visualized. IMPRESSION: Gallbladder wall is thickened with a small amount of pericholecystic fluid which is concerning for acute cholecystitis. Common bile duct is upper limits of normal at 5.3 mm Mild increased echogenicity throughout liver which can be seen with fatty infiltration other infiltrative process Mild right hydronephrosis Report Dictated By: Roxy Vann MD at 02/06/2019 11:42 AM Report E-Signed By: Roxy Vann MD at 02/06/2019 11:45 AM WSN:[id number] Assessment and Plan Problems: (1) Jaundice Status: Acute Assessment & Plan: Based on his history and evaluation to this point, I would suspect he may have an acute infectious process. Possibly a viral hepatitis or a cholangitis. Will check/review viral hepatitis studies. Will get blood cultures. Will discuss further with Dr. Adam. If all is negative will need to pursue further workup. (2) Elevated liver function tests Status: Acute Assessment & Plan: See above. Copies to: SUSAN FLOWER DO ; Venous Thromboembolism Antithrombotics Is Pt On Any Antithrombotics?: No Prophylaxis Tx Contraindicated Pharmacological Contraindicati: Liver Disease Exam Sepsis Risk: Possible Sepsis Risk SHERRELL TRUJILLO MD February 06, 2019 17:44
[2019-02-06] MEDS: KCL/NS* 20 MEQ/1000 ML PREMIX 1,000 ML IV PRN (18:20)
[2019-02-06 19:35] VITALS: BP 115/72
[2019-02-06 19:50] VITALS: BP 115/72
--- NOTE | 2019-02-06 21:31 | Gen Surgery History & Physical ---
History of Present Illness Chief Complaint jaundice, malaise History of Present Illness 43 yo m with about a week of fever/chills, diarrhea, headache, sore throat, sore right neck and lymphadenopathy, malaise and now jaundice. no abd pain until recently in ruq with palpation. had fish and fish eggs recently when in [place] a few wks ago but others who ate it are not sick. History Home Meds Reported Medications Albuterol Sulfate (PROVENTIL HFA) 6.7 Gm Inh, 2 PUFF INH Q4-6H PRN for WHEEZING, INH 02/06/19 Allergies: Coded Allergies: Penicillins (Verified Allergy, Unknown, 02/06/19) Patient History: Bursitis FATHER FH: Alzheimer's disease Paternal Grandmother FH: alcoholism FATHER Paternal Grandfather FH: back pain Maternal Grandmother FH: cancer Maternal Grandfather FH: heart disease FATHER FH: pneumonia Maternal Grandmother FHx: suicide Paternal Grandfather Fibromyalgia BROTHER OR SISTER High cholesterol FATHER Review of Systems Constitutional: Other (per hpi) Exam General Appearance: Alert, Awake, No Acute Distress, Other (recently febrile, jaundice) Neuro: No Gross deficits Eyes: Other (per, eomi) ENT: Moist Mucous Membranes Neck: No Masses Cardiovascular: Other Respiratory: No Respiratory Distress GI: Other (soft, mild ruq ttp, liver palp below right costal margin) Extremities: Other (no pitting edema) Integumentary: Skin Intact without Lesion / Mass Psych: Alert & Oriented X3, Appropriate Mood & Affect Medical Decision Making Data Points Result Diagram: 02/06/19 0950 02/06/19 0950 Assessment and Plan Problems: (1) Jaundice Status: Acute Assessment & Plan: 02/06/19: pt had ct, us, mrcp. no stones were seen and no obstruction of cbd. some fluid around gb. this is likely a liver etiology, less likely a cbd stone that passed. serial exams/labs. hospitalist consulted and working up liver. ice chips. abx. Venous Thromboembolism Antithrombotics Is Pt On Any Antithrombotics?: KIAH Alejandre February 06, 2019 21:31
[2019-02-06] MEDS: IBUPROFEN 600 MG TAB PO PRN (22:47)
[2019-02-07 00:01] VITALS: BP 124/78
[2019-02-07] MEDS: metroNIDAZOLE* 500MG/100ML BAG 100 ML IVPB SCH ×3 (01:01→16:59)
[2019-02-07 04:00] VITALS: BP 118/83
[2019-02-07] MEDS: KCL/NS* 20 MEQ/1000 ML PREMIX 1,000 ML IV PRN ×2 (04:15→18:08)
[2019-02-07 06:19] LABS: PLATELET COUNT, AUTOMATED 156 K/uL (150-450)
[2019-02-07 06:23] LABS: INR 1.23
[2019-02-07 07:23] VITALS: BP 121/78
--- NOTE | 2019-02-07 09:48 | Hospitalist Progress Note ---
Subjective Progress Notes Subjective This patient was admitted for jaundice. He had no acute events overnight. Patient Complains of: Cardiovascular: No: Chest Pain Respiratory: No: Shortness of Breath Physical Exam Vital Signs Date Time Temp Pulse Resp B/P (MAP) Pulse Ox O2 Delivery O2 Flow Rate FiO2 02/07/19 07:23 98.4 105 18 121/78 (92) 93 Room Air 02/07/19 04:00 1.0 Intake and Output 02/07/19 07:00 Intake Total 2300 ml Balance 2300 ml Intake Oral 300 ml IV Total 2000 ml # Voids 2 # Bowel Movements 1 Respiratory: Clear to Auscultation Integumentary: Jaundice Result Diagram: 02/07/19 0551 02/07/19 0551 Assessment and Plan Problems: (1) Jaundice Status: Acute Assessment & Plan: No clear etiology has been shown on imaging with ultrasound, abdominal CT, and MRCP. Viral hepatitis panel is pending. (2) Elevated liver function tests Status: Acute Assessment & Plan: See above. Exam Sepsis Risk: No Definite Risk DAVID GONZALES DO February 07, 2019 09:48
[2019-02-07] MEDS ORDERED: LEVOFLOXACIN/D5W 750 MG/150 ML 150 ML IVPB SCH (10:00)
[2019-02-07] MEDS: IBUPROFEN 600 MG TAB PO PRN ×2 (10:06→18:08)
[2019-02-07 11:33] VITALS: BP 133/80
--- NOTE | 2019-02-07 12:26 | General Surgery Progress Note ---
Subjective Progress Notes Subjective no acute events. some testicular discomfort. mild ruq ttp. Physical Exam Vital Signs Date Time Temp Pulse Resp B/P (MAP) Pulse Ox O2 Delivery O2 Flow Rate FiO2 02/07/19 11:52 99.4 108 14 02/07/19 11:33 133/80 (97) 93 02/07/19 07:23 Room Air 02/07/19 04:00 1.0 Intake and Output 02/07/19 07:00 Intake Total 2300 ml Balance 2300 ml Intake Oral 300 ml IV Total 2000 ml # Voids 2 # Bowel Movements 1 General Appearance: No Acute Distress Cardiovascular: Other (mildly tachy) GI: Other (abd soft) Result Diagram: 02/07/19 0551 02/07/19 0551 Assessment and Plan Problems: (1) Jaundice Status: Acute Assessment & Plan: 02/06/19: pt had ct, us, mrcp. no stones were seen and no obstruction of cbd. some fluid around gb. this is likely a liver etiology, less likely a cbd stone that passed. serial exams/labs. hospitalist consulted and working up liver. ice chips. abx. 02/07/19: mild ruq pain. bili 9.9. labs pending. clears. cont abx. Exam Sepsis Risk: No Definite Risk KIAH STOKES February 07, 2019 12:26
[2019-02-07 14:07] VITALS: Ht 180.3 cm; Wt 81.6 kg
[2019-02-07 15:26] VITALS: BP 131/80
[2019-02-07 18:32] VITALS: BP 127/85
[2019-02-07] MEDS ORDERED: ZOLPIDEM TARTRATE 10 MG TAB PO PRN (20:40)
[2019-02-08] MEDS: metroNIDAZOLE* 500MG/100ML BAG 100 ML IVPB SCH (01:17)
[2019-02-08 02:40] VITALS: BP 113/74
[2019-02-08] MEDS: KCL/NS* 20 MEQ/1000 ML PREMIX 1,000 ML IV PRN (03:37)
[2019-02-08 06:29] LABS: PLATELET COUNT, AUTOMATED 170 K/uL (150-450)
[2019-02-08 06:46] VITALS: BP 110/69
--- NOTE | 2019-02-08 09:15 | Antimicrobial Stewardship ---
Antimicrobial Stewardship Empiricly appropriate: Yes Comment Was treated for one day with Flagyl and Levaquin IV for possible acute infectious process, however, now it is believed to be a viral hepatitis and antibiotics have been discontinued. MARAL RAMÍREZ February 08, 2019 09:15
--- NOTE | 2019-02-08 10:27 | Antimicrobial Stewardship ---
Antimicrobial Stewardship Empiricly appropriate: Yes (Cholangitis possibly- potential, was on outpatient abx) Approriate Cultures done: Yes (Blood Cx pending - NGTD) Renal/Hepatic dosing: Yes (Elevated LFTs - watch for dosing adjustments) Determine cumulative duration: Started 02/07/19 Determine standard duration: Duration 7-10 days if true cholangitis Comment 43 M who presented to the ED with subjective fevers x 5 days and elevated LFTs. He had seen his primary [employer] and was started on Augmentin (took 4 doses and developed a rash), then was switched to cipro. He developed jaundice. Elevated LFTs, Tbili Tmax 102.8 WBC wnl Hepatitis panel- negative thus far CT- no obstructing stones seen Started on Levofloxacin/Flagyl for cholangitis (possible), at this time limited evidence of bacterial infection. Would recommend d/c antibiotics as this most likely represents a viral infection. Augmentin does have a <1% incidence of hepatic failure. Edna Davison, PharmD, BCOP EDNA DAVISON February 08, 2019 09:13
--- NOTE | 2019-02-08 11:04 | Hospitalist Progress Note ---
Subjective Progress Notes Subjective ANI overnight, bili remains elevated. Discussed with family this is likely benign due to viral infection. Physical Exam Vital Signs Date Time Temp Pulse Resp B/P (MAP) Pulse Ox O2 Delivery O2 Flow Rate FiO2 02/08/19 07:20 92 02/08/19 07:20 Room Air 02/08/19 06:46 98.2 101 20 110/69 (83) 02/08/19 02:40 1.0 Intake and Output 02/08/19 07:00 Intake Total 3637 ml Balance 3637 ml Intake Oral 1200 ml IV Total 2437 ml # Voids 3 # Bowel Movements 2 General Appearance: Alert, Awake, No Acute Distress, Afebrile Neuro: No Gross deficits Cardiovascular: Normal Rhythm & Peripheral Pulses Respiratory: No Respiratory Distress GI: Soft and Non-Tender Extremities: Soft and Non Tender, Warm, Pulses, Perfused Integumentary: Jaundice Psych: Alert & Oriented X3 Result Diagram: 02/08/19 0534 02/08/19 0534 Assessment and Plan Problems: (1) Jaundice Status: Acute Assessment & Plan: No clear etiology has been shown on imaging with ultrasound, abdominal CT, and MRCP. Viral hepatitis panel possible vaccination for HAV vs recent exposure otherwise negative. Recent Augmentin could contribute to liver disfunction. Likely benign, will follow up with Dr Adam in 1-2 weeks to recheck bilirubin. (2) Elevated liver function tests Status: Acute Assessment & Plan: See above. Exam Sepsis Risk: No Definite Risk REBOLLEDO ROSANNE MARRERO DO February 08, 2019 11:04
[2019-02-08 11:09] VITALS: BP_SYST 110; BP_SYST 113; BP_DIAS 68; BP_DIAS 69
[2019-02-08] MEDS: IBUPROFEN 600 MG TAB PO PRN ×2 (11:16→17:55)
[2019-02-08 16:19] VITALS: BP 114/70
--- NOTE | 2019-02-08 18:22 | Hospitalist Depart ---
Discharge Summary Reason for Hosp/Final Diag: (1) Jaundice Status: Acute Hospital Course & Plan: 02/06/19: pt had ct, us, mrcp. no stones were seen and no obstruction of cbd. some fluid around gb. this is likely a liver etiology, less likely a cbd stone that passed. serial exams/labs. hospitalist consulted and working up liver. ice chips. abx. 02/07/19: mild ruq pain. bili 9.9. labs pending. clears. cont abx. 02/08/19: mild abd pain. pt able to tolerate large meal. feels pretty good now. i spoke with gi in [place]. plan is d/c home. hida and labs on mon. will make appt with gi at that point if needed. repeat ct 1 mo. Departure Weight (Pounds): 180 Result Diagram: 02/08/19 0534 02/08/19 0534 Condition: No Change (one improvement is that he is able to sonal food. ) Discharge Instructions Home Meds Reported Medications Albuterol Sulfate (PROVENTIL HFA) 6.7 Gm Inh, 2 PUFF INH Q4-6H PRN for WHEEZING, INH 02/06/19 Diet: Regular Activity: As Tolerated Special Instructions: we will call you monday to set up hida and labwork Venous Thromboembolism Antithrombotics Is Pt On Any Antithrombotics?: No KIAH STOKES February 08, 2019 18:22
== END 2019-02-08 19:00 | disposition home or self-care (01) | DRG 866 ==
LOC: ER 10:00 → MED 15:53
PROVIDERS: ADMIT Surgery; ATTEND Surgery
DX: B34.9 Viral infection, unspecified (principal); R17 Unspecified jaundice; R79.89 Other specified abnormal findings of blood chemistry; Z88.0 Allergy status to penicillin
CPT/HCPCS: 36415; 70491; 71046; 74177; 74183; 76705; 80074; 80320; 81001; 82040; 82247; 82248; 82310; 82374; 82435; 82565; 82947; 83690; 83735; 84075; 84132; 84155; 84295; 84450; 84460; 84520; 85025; 85610; 85730; 86308; 86704; 86708; 86709; 86735; 86803; 87040; 87502; 87653; 96360; 96361; 99285; A9577; J1956; J3480; J3490; J7030; J7050; Q9967

== ENCOUNTER → 2019-02-13 | Outpatient (CLI) | payer OTHER ==
[2019-02-07 14:07] VITALS: BMI 25.1
[~2019-02-13] MED LIST changes: +PRED20TA6 PO; +VALA100062 PO
--- NOTE | 2019-02-14 13:29 | Miscellaneous Provider Note ---
Miscellaneous Provider Note Note hida showed delayed filling of gb. tbili now around 6. i spoke with gi. we agree that this is likely a liver issue and not a gb issue primarily and that surgery and abx are not needed. i spoke with pt. he feeling better. is appetite is back. plan: continue conservative mgmnt. no tylenol, etoh, or fatty/greasy food. repeat liver panel in 1 wk. KIAH STOKES Feb 14, 2019 13:29
== END ==
LOC: LAB 09:37
PROVIDERS: ATTEND Internal Medicine Infectious Disease
DX: Z02.9 Encounter for administrative examinations, unspecified (principal)
CPT/HCPCS: 86644; 86645; 86663; 86664; 86665

== ENCOUNTER → 2019-02-13 | Outpatient (CLI) | payer OTHER ==
[2019-02-07 14:07] VITALS: BMI 25.1
[~2019-02-13] MED LIST changes: -PRED20TA6 PO; +SINCALIDE 5 MCG VIAL INJ ONE; -VALA100062 PO; +WATER FOR INJ,STERILE 20 ML 0 ML ONE
[2019-02-13 09:51] LABS: PLATELET COUNT, AUTOMATED 351 K/uL (150-450)
--- NOTE | 2019-02-13 16:22 | RADIOLOGY IMAGING REPORT ---
FACILITY: [facility] PATIENT NAME: Mitchel Andrade : 1975 MR: [id number] V: [id number] EXAM DATE: ORDERING PHYSICIAN: KIAH STOKES TECHNOLOGIST: Location: [facility] - [place] Patient: Mitchel Andrade : 1975 Visit/Account:[id number] Date of Sevice: 02/13/2019 NM HIDA SCAN HISTORY: abdominal pain, jaundice, diarrhea, abnormal liver labs TECHNIQUE: 6.7 mCi Tc99m Hepatolite was injected intravenously. Multiple sequential gamma camera adele ges of the abdomen were obtained for 4 1/2 hours minutes.. Due to the delayed visualization of gallb ladder Kinevac was not administered COMPARISON: MR the abdomen February 06, 2019 FINDINGS: Liver uptake and excretion: Unremarkable. Time to appearance: Bile ducts: 10 minutes. Gallbladder: 270 minutes. Duodenum: 15 minutes. Duodenal-gastric reflux / extravasation: None. IMPRESSION: Delayed visualization of gallbladder at 4 1/2 hours. This finding in conjunction with the MRI and bl adder ultrasound finding suggests acute or chronic cholecystitis. Report Dictated By: Roxy Vann MD at 02/13/2019 4:12 PM Report E-Signed By: Roxy Vann MD at 02/13/2019 4:16 PM WSN:[email or web address]
== END ==
LOC: NUC 01:00
PROVIDERS: ATTEND Surgery
DX: K80.20 Calculus of gallbladder without cholecystitis without obstruction (principal)
CPT/HCPCS: 36415; 78226; 83690; 85025; A9537; 82040; 82247; 82310; 82374; 82435; 82565; 82947; 84075; 84132; 84155; 84295; 84450; 84460; 84520; J2805

== ENCOUNTER → 2019-02-21 | Outpatient (CLI) | payer OTHER ==
[2019-02-07 14:07] VITALS: BMI 25.1
[~2019-02-21] MED LIST changes: -SINCALIDE 5 MCG VIAL INJ ONE; -WATER FOR INJ,STERILE 20 ML 0 ML ONE
== END ==
LOC: LAB 07:35
PROVIDERS: ATTEND Surgery
DX: R17 Unspecified jaundice (principal); R94.5 Abnormal results of liver function studies
CPT/HCPCS: 36415; 82040; 82247; 82248; 84075; 84155; 84450; 84460

== ENCOUNTER → 2019-03-07 | Outpatient (CLI) | payer OTHER ==
[2019-02-07 14:07] VITALS: BMI 25.1
[~2019-03-07] MED LIST changes: +PRED20TA6 PO; +VALA100062 PO
--- NOTE | 2019-03-07 16:25 | RADIOLOGY IMAGING REPORT ---
FACILITY: [facility] PATIENT NAME: Mitchel Andrade : 1975 MR: [id number] V: [id number] EXAM DATE: ORDERING PHYSICIAN: RAJANI ADLER TECHNOLOGIST: Location: [facility] - [place] Patient: Mitchel Andrade : 1975 Visit/Account:[id number] Date of Sevice: 03/07/2019 CT SINUS W/O CON COMPARISONS: None ADDITIONAL PERTINENT HISTORY: Chronic sinusitis TECHNIQUE: Multiple axial images were obtained through the paranasal sinuses with coronal and sagitta l reformatted images. No IV contrast was administered. One of the following dose optimization techni ques was utilized in the performance of this exam: Automated exposure control; adjustment of the mA a nd/or kV according to the patient's size; or use of an iterative reconstruction technique. Specific details can be referenced in the facility's radiology CT exam operational policy. FINDINGS: Maxillary sinuses: Moderate mucosal thickening involving the right maxillary sinus.. Frontal sinuses: Mild mucosal thickening involving the left frontal sinus.. Ethmoid air cells: Negative. Sphenoid sinuses:Negative. Nasal septum: Negative. Drainage pathways: Patent Paranasal variance: None Medial orbital abreu, cribriform plate, and orbital floors: Negative. Visualized bony skull base Negative. Visualized intracranial contents: Negative. Orbits and surrounding soft tissues: Negative. IMPRESSION: 1. Mild nonobstructive paranasal sinus disease as discussed above. Report Dictated By: Peterson Kim MD at 03/07/2019 4:12 PM Report E-Signed By: Peterson Kim MD at 03/07/2019 4:17 PM [email or web address]
== END ==
LOC: CT 00:26
PROVIDERS: ATTEND Physician Assistant
DX: J32.9 Chronic sinusitis, unspecified (principal)
CPT/HCPCS: 70486

== ENCOUNTER → 2019-03-18 | Outpatient (CLI) | payer OTHER ==
[2019-02-07 14:07] VITALS: BMI 25.1
== END ==
LOC: LAB 07:15
PROVIDERS: ATTEND Surgery
DX: R94.5 Abnormal results of liver function studies (principal); R17 Unspecified jaundice
CPT/HCPCS: 36415; 82040; 82247; 82248; 84075; 84155; 84450; 84460